=== PATIENT | female | born 1955 | race Caucasian/White ===

== ENCOUNTER → 2016-07-24 | Outpatient (CLI) | payer OTHER ==
[2016-07-24 11:08] VITALS: BP 147/80
== END ==
LOC: MHUC 10:33
PROVIDERS: ATTEND Physician Assistant
DX: R05 Cough (principal)
CPT/HCPCS: 99213

== ENCOUNTER → 2016-11-04 | Outpatient (CLI) | payer OTHER ==
[~2016-11-04] MED LIST: AMOX1TAB12 PO; AZIT250T81 PO; BENZ-22 PO; BUSP10TA95 PO; DEXL60CA5 PO; DILT240C53 PO; ESCI20TA39 PO; FEXO180T PO; LANS30CA14 PO; LORA10TA76 PO; LOSA1TAB69 PO; MAGN250T35 PO; MELA10TA2 PO; NAPR220T76 PO; PROP120C3 PO; PROP60TA17 PO; TBR.3OP51 OU; TOPI25TA36 PO; VITA-189 PO
== END ==
LOC: LAB 16:50
PROVIDERS: ATTEND Nurse Practitioner Family
DX: Z53.9 Procedure and treatment not carried out, unspecified reason (principal)

== ENCOUNTER → 2016-11-04 | Outpatient (REF) | payer OTHER ==
[2016-11-04 17:49] LABS: BASOPHILS % (AUTO) 0 % (0-2); EOSINOPHILS # (AUTO) 0.3 10^3uL; EOSINOPHILS % (AUTO) 3 % (0-4); LYMPHOCYTES # (AUTO) 2.4 X10^3; MEAN CORPUSCULAR HEMOGLOBIN 27.5 PG (26.0-34.0); MEAN CORPUSCULAR HGB CONC 33.3 g/dL (31.0-37.0); MEAN CORPUSCULAR VOLUME 83 FL (80-100); MONOCYTES # (AUTO) 0.4 X10^3; MONOCYTES % (AUTO) 5 % (3-11); NEUTROPHILS # (AUTO) 6.1 X10^3; NEUTROPHILS % (AUTO) 66 % (51-67); PLATELET COUNT 240 10^3uL (150-450); WHITE BLOOD COUNT 9.24 10^3uL (4.0-11.0)
[2016-11-04 17:57] LABS: ALBUMIN 4.4 g/dL (3.4-5.0); ANION GAP 15.2 MEQ/L (3-15); CALCULATED IONIZED CALCIUM 4.1 mg/dL (3.8-4.6); TOTAL PROTEIN 7.3 g/dL (6.4-8.5)
[2016-11-04 21:24] LABS: URINE CENTRIFUGED VOLUME 12 mL
== END ==
LOC: LAB 16:23
PROVIDERS: ATTEND Nurse Practitioner Family
DX: K52.9 Noninfective gastroenteritis and colitis, unspecified (principal); R35.0 Frequency of micturition
CPT/HCPCS: 80053; 81015; 84443; 85025; 87507